=== PATIENT | male | born 1940 | race Caucasian/White ===

== ENCOUNTER 2020-09-05 10:15 | Outpatient (CLI) | payer MEDICARE ==
--- NOTE | 2020-09-05 11:37 | RAD ---
EXAM: Chest 2 views: HISTORY: Dyspnea COMPARISON: 11/18/2015 FINDINGS: There is a normal-sized cardiomediastinal silhouette. Increased interstitial lung markings are prese nt. Biapical pleural thickening is seen. There is no evidence of consolidation, mass, or pleural effusion. No acute osseous abnormality. IMPRESSION: Interval increase in interstitial lung disease. This went may represent sequelae from prior infectiou s process or developing pulmonary fibrosis.
== END 2020-09-05 10:16 | disposition home or self-care (01) ==
LOC: BICRAD 10:15
PROVIDERS: ATTEND Internal Medicine Pulmonary Disease
DX: R06.00 Dyspnea, unspecified (principal); J84.9 Interstitial pulmonary disease, unspecified
CPT/HCPCS: 71046